=== PATIENT | female | born 1930 | race Caucasian/White ===

== ENCOUNTER 2017-11-13 13:47 | Observation (INO) | payer MEDICARE, OTHER ==
--- NOTE | 2017-11-13 14:48 | EDM.PDOC ---
ED HPI GENERAL MEDICAL PROBLEM - General Chief Complaint: Syncope Stated Complaint: MEDICAL VIA TRI Time Seen by Provider: 11/13/17 14:43 Source of Information: Reports: Patient History Limitations: Reports: No Limitations - History of Present Illness INITIAL COMMENTS - FREE TEXT/NARRATIVE: pt was up on the comode feeling like she needed to have a bm and she had an episode where she passed out. The nurse aid was in the room and lowered her to the floor with no fall. Onset: Today, Sudden Duration: Hour(s): Location: Reports: Head, Abdomen Associated Symptoms: Reports: Nausea/Vomiting, Syncope, Other ( diarrhea. The pt was up on the comode and had the urge to have a bm. She suddenly passed out and was lowered to the floor. She then vomited and she had loose stool. She has pased out in the past after she has vomited. ) Right Shoulder Pain Score (Numeric/FACES): 10 - Related Data Allergies Allergy/AdvReac Type Severity Reaction Status Date / Time benzonatate Allergy Cannot Uncoded 11/13/17 14:19 Remember Home Meds: Home Meds Latanoprost 1 drop EYEBOTH BEDTIME 02/17/14 [History] Estradiol [Estrace] 0.5 mg PO DAILY 10/06/14 [History] Escitalopram [Lexapro] 20 mg PO DAILY 11/13/17 [History] Furosemide [Lasix] 20 mg PO DAILY 11/13/17 [History] Timolol Maleate 1 drop TOP BID 11/13/17 [History] Losartan [Cozaar] 50 mg PO DAILY #30 tab 11/15/17 [Rx] Past Medical History HEENT History: Reports: Cataract, Glaucoma, Macular Degeneration Cardiovascular History: Reports: Arrhythmia, Hypertension, Other (See Below) Other Cardiovascular History: edema Genitourinary History: Reports: Urinary Incontinence [employer] History: Reports: Other (See Below) Other [employer] History: chronic vaginitis Musculoskeletal History: Reports: Osteoarthritis, Other (See Below) Other Musculoskeletal History: abnormalitiesof gait and mobility Neurological History: Reports: Other (See Below) Other Neuro History: 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 Psychiatric History: Reports: Depression Endocrine/Metabolic History: Reports: Obesity/BMI 30+ - Past Surgical History Female Surgical History: Reports: Hysterectomy ED ROS GENERAL - Review of Systems Review Of Systems: See Below Constitutional: Reports: Weakness, Fatigue HEENT: Reports: No Symptoms Respiratory: Reports: No Symptoms Cardiovascular: Reports: No Symptoms Endocrine: Reports: No Symptoms GI/Abdominal: Reports: Diarrhea, Nausea, Vomiting : Reports: No Symptoms Musculoskeletal: Reports: No Symptoms Skin: Reports: No Symptoms ED EXAM, GENERAL - Physical Exam Exam: See Below Free Text/Narrative:: pt arrived with shoulder pain on the rt because she was rolled on her rt shoulder. She had a syncopal episode. She is very prone to passing out. Exam Limited By: Other (pt is alert at the time of arrival. Her daughter is here and is able to give a clear history.) General Appearance: Alert, Mild Distress, Other (pupils equal and reactive. ) Ears: Normal TMs Nose: Normal Inspection Throat/Mouth: Normal Inspection Head: Atraumatic Neck: Normal Inspection Respiratory/Chest: No Respiratory Distress Cardiovascular: Regular Rate, Rhythm, Other (pt was having tachy at first. ) GI/Abdominal: Soft, Non-Tender (Female) Exam: Deferred Rectal (Female) Exam: Deferred Back Exam: Normal Inspection Extremities: Other (pt has tenderness of the rt shoulder. Xrays were obtained which does not show a dislocation of fracture. ) Neurological: Alert, Oriented, Normal Cognition, Other (pt is forgetful and is having trouble giving a acurate history. ) Psychiatric: Depressed Mood Course - Vital Signs Last Recorded V/S: Last Vital Signs Temp 35.9 C 11/15/17 11:23 Pulse 66 11/15/17 11:23 Resp 18 11/15/17 11:23 BP 142/69 H 11/15/17 11:23 Pulse Ox 98 11/15/17 11:23 Orthostatic Blood Pressure [ 150/78 Standing] Orthostatic Blood Pressure [ 147/71 Sitting] Orthostatic Blood Pressure [ 150/70 Supine] - Orders/Labs/Meds Labs: Laboratory Tests 11/13/17 11/13/17 11/13/17 Range/Units 14:49 14:49 14:49 WBC 9.6 (4.5-11.0) K/uL RBC 4.12 (3.30-5.50) M/uL Hgb 12.8 (12.0-15.0) g/dL Hct 38.6 (36.0-48.0) % MCV 94 (80-98) fL MCH 31 (27-31) pg MCHC 33 (32-36) % Plt Count 201 (150-400) K/uL Neut % (Auto) 67 H (36-66) % Lymph % (Auto) 21 L (24-44) % [place] % (Auto) 11 H (2-6) % Eos % (Auto) 1 L (2-4) % Baso % (Auto) 0 (0-1) % Sodium 134 L (140-148) mmol/L Potassium 3.9 (3.6-5.2) mmol/L Chloride 98 L (100-108) mmol/L Carbon Dioxide 31 (21-32) mmol/L Anion Gap 8.9 (5.0-14.0) mmol/L BUN 21 H (7-18) mg/dL Creatinine 0.9 (0.6-1.0) mg/dL Est Cr Clr Drug Dosing 38.03 mL/min Estimated GFR (MDRD) 59 L (>60) Glucose 107 H (74-106) mg/dL Calcium 8.6 (8.5-10.1) mg/dL Total Bilirubin 0.4 (0.2-1.0) mg/dL AST 16 (15-37) U/L ALT 16 (12-78) U/L Alkaline Phosphatase 56 (46-116) U/L Troponin I < 0.017 (0.000-0.056) ng/mL Total Protein 6.2 L (6.4-8.2) g/dL Albumin 3.2 L (3.4-5.0) g/dL Globulin 3.0 (2.3-3.5) g/dL Albumin/Globulin Ratio 1.1 L (1.2-2.2) Urine Color Urine Appearance Urine pH (4.5-8.0) Ur Specific [place] (1.008-1.030) Urine Protein (NEGATIVE) mg/dL Urine Glucose (UA) (NEGATIVE) mg/dL Urine Ketones (NEGATIVE) mg/dL Urine Occult Blood (NEGATIVE) Urine Nitrite (NEGATIVE) Urine Bilirubin (NEGATIVE) Urine Urobilinogen (NORMAL) mg/dL Ur Leukocyte Esterase (NEGATIVE) Urine RBC (0-5) Urine WBC (0-5) Ur Epithelial Cells Amorphous Sediment Urine Bacteria Urine Mucus 11/13/17 Range/Units 15:45 WBC (4.5-11.0) K/uL RBC (3.30-5.50) M/uL Hgb (12.0-15.0) g/dL Hct (36.0-48.0) % MCV (80-98) fL MCH (27-31) pg MCHC (32-36) % Plt Count (150-400) K/uL Neut % (Auto) (36-66) % Lymph % (Auto) (24-44) % [place] % (Auto) (2-6) % Eos % (Auto) (2-4) % Baso % (Auto) (0-1) % Sodium (140-148) mmol/L Potassium (3.6-5.2) mmol/L Chloride (100-108) mmol/L Carbon Dioxide (21-32) mmol/L Anion Gap (5.0-14.0) mmol/L BUN (7-18) mg/dL Creatinine (0.6-1.0) mg/dL Est Cr Clr Drug Dosing mL/min Estimated GFR (MDRD) (>60) Glucose (74-106) mg/dL Calcium (8.5-10.1) mg/dL Total Bilirubin (0.2-1.0) mg/dL AST (15-37) U/L ALT (12-78) U/L Alkaline Phosphatase (46-116) U/L Troponin I (0.000-0.056) ng/mL Total Protein (6.4-8.2) g/dL Albumin (3.4-5.0) g/dL Globulin (2.3-3.5) g/dL Albumin/Globulin Ratio (1.2-2.2) Urine Color Yellow Urine Appearance Clear Urine pH 5.0 (4.5-8.0) Ur Specific [place] 1.020 (1.008-1.030) Urine Protein Negative (NEGATIVE) mg/dL Urine Glucose (UA) Normal (NEGATIVE) mg/dL Urine Ketones Negative (NEGATIVE) mg/dL Urine Occult Blood Moderate (NEGATIVE) Urine Nitrite Negative (NEGATIVE) Urine Bilirubin Negative (NEGATIVE) Urine Urobilinogen Normal (NORMAL) mg/dL Ur Leukocyte Esterase Negative (NEGATIVE) Urine RBC 5-10 H (0-5) Urine WBC Not seen (0-5) Ur Epithelial Cells Few Amorphous Sediment Few Urine Bacteria Rare Urine Mucus Not seen Meds: Medications Discontinued Medications Generic Name Dose Route Start Last Admin Trade Name Freq PRN Reason Stop Dose Admin Acetaminophen 650 mg 11/13/17 21:00 11/13/17 21:27 Tylenol PO 650 mg Q4H PRN Administration Pain (Mild 1-3)/fever Enoxaparin Sodium 40 mg 11/13/17 21:00 11/14/17 20:13 Lovenox SUBCUT 40 mg Q24H ISMAEL Administration Escitalopram Oxalate 20 mg 11/14/17 09:00 11/15/17 08:11 Lexapro PO 20 mg DAILY ISMAEL Administration Hydrochlorothiazide 12.5 mg 11/14/17 12:00 Hydrochlorothiazide PO DAILY ISMAEL Sodium Chloride 1,000 mls @ 500 mls/hr 11/13/17 16:15 11/13/17 16:29 Normal Saline IV 500 mls/hr ASDIRECTED ISMAEL Administration Sodium Chloride 1,000 mls @ 75 mls/hr 11/13/17 21:00 11/14/17 09:01 Normal Saline IV 75 mls/hr ASDIRECTED ISMAEL Administration Latanoprost 0 ml 11/13/17 21:00 11/14/17 20:13 Xalatan 0.005% Ophth Soln EYEBOTH 1 drop BEDTIME ISMAEL Administration Magnesium Hydroxide 30 ml 11/13/17 21:00 Milk Of Magnesia PO Q12H PRN Constipation Melatonin 9 mg 11/13/17 21:00 11/14/17 20:13 Melatonin PO 9 mg BEDTIME ISMAEL Administration Ondansetron HCl 4 mg 11/13/17 21:00 Zofran IV Q4H PRN Nausea/Vomiting Losartan 100mg Tab ( 0 each 11/14/17 12:00 11/15/17 08:11 Ptom) PO 1 each DAILY ISMAEL Administration Polyethylene Glycol 17 gm 11/13/17 21:00 Miralax PO DAILY PRN Constipation Senna/Docusate Sodium 1 tab 11/13/17 21:00 Senna Plus PO BID PRN Constipation Sodium Chloride 10 ml 11/13/17 21:00 Saline Flush FLUSH ASDIRECTED PRN Keep Vein Open Timolol Maleate 0 ml 11/13/17 21:00 11/14/17 11:50 Timoptic 0.5% Ophth Soln EYEBOTH Not Given BID ISMAEL Timolol Maleate 0 ml 11/14/17 12:00 11/15/17 08:11 Timoptic 0.5% Ophth Soln EYEBOTH 1 drop BID [facility] Administration - Re-Assessments/Exams Free Text/Narrative Re-Assessment/Exam: 11/16/17 07:28 pt had a cat scan of the head. She was hydrated with a liter of fluid. Her rhythm stayed good. Her trop was normal>she continuied not to ambulate or transfer well. There was concern for her safety at home. Departure - Departure Time of Disposition: 18:21 Disposition: Admitted As Inpatient 66 Reason for Transfer *Q: Other Condition: Fair Clinical Impression: Vagal reaction, Syncope, Confusion, Dehydration
[2017-11-13] MEDS ORDERED: Sodium Chloride 0.9% 1,000 ML IV SCH (16:15)
--- NOTE | 2017-11-13 20:33 | PCM.HP ---
H&P History of Present Illness - General Date of Service: 11/13/17 Admit Problem/Dx: Admission Diagnosis/Problem Admission Diagnosis/Problem Weakness Source of Information: Patient, Family, Provider, RN Notes Reviewed History Limitations: Reports: Altered Mental Status (Dementia) - History of Present Illness Initial Comments - Free Text/Narative: Ms. Vazquez is an 87-year-old woman who is admitted to observation status because of significant weakness and need to facilitate half-way placement. Family gives a history that she has become progressively more weak over the past few months and has required more assistance with transfers and ambulationed. She has a known history of vasovagal near syncope as well as syncope, usually related to bowel movements. An aid was with her this morning when she was on the toilet to have a bowel movement and began to feel weak and lightheaded. She was noted to have lost consciousness and was lowered to the floor, shortly thereafter she became nauseated and vomited. Evaluation in the emergency department including CT scan is unremarkable. She is not felt to be safe for discharge back to her assisted living facility. Because of her dementia she is unable to provide reliable information concerning symptoms or review of systems. Right Shoulder Pain Score (Numeric/FACES): 10 - Related Data Allergies/Adverse Reactions: Allergies Allergy/AdvReac Type Severity Reaction Status Date / Time benzonatate Allergy Cannot Uncoded 11/13/17 14:19 Remember Home Medications: Home Meds Latanoprost 1 drop EYEBOTH BEDTIME 02/17/14 [History] Estradiol [Estrace] 0.5 mg PO DAILY 10/06/14 [History] Hydrochlorothiazide [Microzide] 12.5 mg PO DAILY 10/06/14 [History] Escitalopram [Lexapro] 20 mg PO DAILY 11/13/17 [History] Furosemide [Lasix] 20 mg PO DAILY 11/13/17 [History] Losartan Potassium [Cozaar] 100 mg PO DAILY 11/13/17 [History] Timolol Maleate 1 drop TOP BID 11/13/17 [History] Past Medical History HEENT History: Reports: Cataract, Glaucoma, Macular Degeneration Cardiovascular History: Reports: Arrhythmia, Hypertension, Other (See Below) Other Cardiovascular History: edema Genitourinary History: Reports: Urinary Incontinence [employer] History: Reports: Other (See Below) Other OB/BYN History: chronic vaginitis Musculoskeletal History: Reports: Osteoarthritis, Other (See Below) Other Musculoskeletal History: abnormalitiesof gait and mobility Neurological History: Reports: Other (See Below) Other Neuro History: 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 Psychiatric History: Reports: Depression Endocrine/Metabolic History: Reports: Obesity/BMI 30+ - Past Surgical History Female Surgical History: Reports: Hysterectomy Social & Family History - Tobacco Use Smoking Status *Q: Former Smoker Used Tobacco, but Quit: Yes Month/Year Tobacco Last Used: 50 years - Caffeine Use Caffeine Use: Reports: Coffee - Recreational Drug Use Recreational Drug Use: No H&P Review of Systems - Review of Systems: Review Of Systems: Unable To Obtain General: Reports: ROS unobtainable (Dementia) Exam - Exam Exam: See Below - Vital Signs Vital Signs: Last Vital Signs Temp 96.8 F 11/13/17 15:47 Pulse 89 11/13/17 19:41 Resp 17 11/13/17 19:41 BP 119/68 11/13/17 19:41 Pulse Ox 96 11/13/17 18:24 Orthostatic Blood Pressure [ 150/78 Standing] Orthostatic Blood Pressure [ 147/71 Sitting] Orthostatic Blood Pressure [ 150/70 Supine] Weight: 220 lb - Exam Quality Assessment: DVT Prophylaxis General: Alert, Cooperative HEENT: Conjunctiva Clear, Hearing Intact, Mucosa Moist & [place], Normal Nasal Septum, Posterior Pharynx Clear, Pupils Equal Neck: Supple, Trachea Midline, +2 Carotid Pulse wo Bruit Lungs: Clear to Auscultation, Normal Respiratory Effort Cardiovascular: Regular Rate, Regular Rhythm, Normal S1, Normal S2. No: Systolic Murmur, Diastolic Murmur GI/Abdominal Exam: Soft, Non-Tender, No Organomegaly, No Distention Extremities: No Pedal Edema, Other (Chronic right shoulder pain) Skin: Warm, Dry, Intact Neurological: Cranial Nerves Intact, Strength Equal Bilateral, Normal Speech, Normal Tone, Sensation Intact. No: Focal Deficit Neuro Extensive - Mental Status: Alert, Normal Mood/Affect, Disorientation to Place, Disorientation to Time, Memory Loss-Remote Events, Memory Loss-Recent Events. No: Normal Cognition, Memory Intact, Disorientation to Person - Patient Data Lab Results Last 24 hrs: Laboratory Results - last 24 hr 11/13/17 11/13/17 11/13/17 Range/Units 14:49 14:49 14:49 WBC 9.6 (4.5-11.0) K/uL RBC 4.12 (3.30-5.50) M/uL Hgb 12.8 (12.0-15.0) g/dL Hct 38.6 (36.0-48.0) % MCV 94 (80-98) fL MCH 31 (27-31) pg MCHC 33 (32-36) % Plt Count 201 (150-400) K/uL Neut % (Auto) 67 H (36-66) % Lymph % (Auto) 21 L (24-44) % Moore % (Auto) 11 H (2-6) % Eos % (Auto) 1 L (2-4) % Baso % (Auto) 0 (0-1) % Sodium 134 L (140-148) mmol/L Potassium 3.9 (3.6-5.2) mmol/L Chloride 98 L (100-108) mmol/L Carbon Dioxide 31 (21-32) mmol/L Anion Gap 8.9 (5.0-14.0) mmol/L BUN 21 H (7-18) mg/dL Creatinine 0.9 (0.6-1.0) mg/dL Est Cr Clr Drug Dosing 38.03 mL/min Estimated GFR (MDRD) 59 L (>60) Glucose 107 H (74-106) mg/dL Calcium 8.6 (8.5-10.1) mg/dL Total Bilirubin 0.4 (0.2-1.0) mg/dL AST 16 (15-37) U/L ALT 16 (12-78) U/L Alkaline Phosphatase 56 (46-116) U/L Troponin I < 0.017 (0.000-0.056) ng/mL Total Protein 6.2 L (6.4-8.2) g/dL Albumin 3.2 L (3.4-5.0) g/dL Globulin 3.0 (2.3-3.5) g/dL Albumin/Globulin Ratio 1.1 L (1.2-2.2) Urine Color Urine Appearance Urine pH (4.5-8.0) Ur Specific [place] (1.008-1.030) Urine Protein (NEGATIVE) mg/dL Urine Glucose (UA) (NEGATIVE) mg/dL Urine Ketones (NEGATIVE) mg/dL Urine Occult Blood (NEGATIVE) Urine Nitrite (NEGATIVE) Urine Bilirubin (NEGATIVE) Urine Urobilinogen (NORMAL) mg/dL Ur Leukocyte Esterase (NEGATIVE) Urine RBC (0-5) Urine WBC (0-5) Ur Epithelial Cells Amorphous Sediment Urine Bacteria Urine Mucus 11/13/17 Range/Units 15:45 WBC (4.5-11.0) K/uL RBC (3.30-5.50) M/uL Hgb (12.0-15.0) g/dL Hct (36.0-48.0) % MCV (80-98) fL MCH (27-31) pg MCHC (32-36) % Plt Count (150-400) K/uL Neut % (Auto) (36-66) % Lymph % (Auto) (24-44) % Moore % (Auto) (2-6) % Eos % (Auto) (2-4) % Baso % (Auto) (0-1) % Sodium (140-148) mmol/L Potassium (3.6-5.2) mmol/L Chloride (100-108) mmol/L Carbon Dioxide (21-32) mmol/L Anion Gap (5.0-14.0) mmol/L BUN (7-18) mg/dL Creatinine (0.6-1.0) mg/dL Est Cr Clr Drug Dosing mL/min Estimated GFR (MDRD) (>60) Glucose (74-106) mg/dL Calcium (8.5-10.1) mg/dL Total Bilirubin (0.2-1.0) mg/dL AST (15-37) U/L ALT (12-78) U/L Alkaline Phosphatase (46-116) U/L Troponin I (0.000-0.056) ng/mL Total Protein (6.4-8.2) g/dL Albumin (3.4-5.0) g/dL Globulin (2.3-3.5) g/dL Albumin/Globulin Ratio (1.2-2.2) Urine Color Yellow Urine Appearance Clear Urine pH 5.0 (4.5-8.0) Ur Specific [place] 1.020 (1.008-1.030) Urine Protein Negative (NEGATIVE) mg/dL Urine Glucose (UA) Normal (NEGATIVE) mg/dL Urine Ketones Negative (NEGATIVE) mg/dL Urine Occult Blood Moderate (NEGATIVE) Urine Nitrite Negative (NEGATIVE) Urine Bilirubin Negative (NEGATIVE) Urine Urobilinogen Normal (NORMAL) mg/dL Ur Leukocyte Esterase Negative (NEGATIVE) Urine RBC 5-10 H (0-5) Urine WBC Not seen (0-5) Ur Epithelial Cells Few Amorphous Sediment Few Urine Bacteria Rare Urine Mucus Not seen Result Diagrams: 11/13/17 14:49 11/13/17 14:49 *Q Meaningful Use (ADM) - VTE Risk Assess *Q Each Risk Factor Represents 1 Point: Obesity ( BMI > 25 kg/m2) Total Score 1 Point Risk Factors: 1 Each Risk Factor Represents 2 Points: None Total Score 2 Point Risk Factors: 0 Each Risk Factor Represents 3 Points: Age 75 Years or Greater Total Score 3 Point Risk Factors: 3 Each Risk Factor Represents 5 Points: None Total Score 5 Point Risk Factors: 0 Venous Thromboembolism Risk Factor Score *Q: 4 Problem List Initiated/Reviewed/Updated: Yes Orders Last 24hrs: Active Orders 24 hr Category Date Time Status Patient Status Manage Transfer [TRANSFER] Routine ADT 11/13/17 20:09 Active EKG Documentation Completion [RC] ASDIRECTED Care 11/13/17 14:37 Active Orthostatic Vital Signs [RC] ASDIRECTED Care 11/13/17 15:07 Active Head wo Cont [CT] Stat Exams 11/13/17 18:13 Taken Shoulder Comp Rt [CR] Stat Exams 11/13/17 16:44 Taken UA W/MICROSCOPIC [URIN] Urgent Lab 11/13/17 15:45 Ordered Sodium Chloride 0.9% [Normal Saline] 1,000 ml Med 11/13/17 16:15 Active IV ASDIRECTED Resuscitation Status Routine Resus Stat 11/13/17 20:11 Ordered EKG 12 Lead [EK] Routine Ther 11/13/17 14:36 Ordered Medication Orders Sodium Chloride (Normal Saline) 1,000 mls @ 500 mls/hr IV ASDIRECTED ISMAEL Last Admin: 11/13/17 16:29 Dose: 500 mls/hr Assessment/Plan Comment:: ASSESSMENT AND PLAN GENERALIZED WEAKNESS-progressive weakness over the past few months, causing difficulty with transfers and ambulation. Not felt to be safe for discharge back to assisted living facility. -penitentiary placement in a.m. VASOVAGAL SYNCOPE-previous history of syncope and near-syncope, often related to use of the toilet. Similar symptoms today with lightheadedness weakness and nausea. -Cardiac monitoring -Orthostatic vital signs DEMENTIA-family has noted a progressive history of confusion and memory loss -penitentiary placement as above -Melatonin 9 mg by mouth daily at bedtime while hospitalized MAINTENANCE ISSUES -DVT prophylaxis;Lovenox 30 mg subcutaneous daily -GI prophylaxis;Not indicated -Huynh catheter;Not indicated -Nutrition;2 g sodium diet -Nicotine dependence;Not required CODE STATUS-DNR/DNI ADMISSION STATUS-this patient will be admitted to observation status, expect no more than a one night hospital stay for evaluation and management of problems as outlined above. DISPOSITION-anticipate discharge to home after the hospital stay. PRIMARY CARE PROVIDER-Dr. Narvaez
[2017-11-13] MEDS ORDERED: Ondansetron 4 MG/2 ML SDV IV PRN (21:00)
[2017-11-13] MEDS ORDERED: Acetaminophen 325 MG Tab PO PRN (21:00)
[2017-11-13] MEDS ORDERED: Magnesium Hydroxide 400 MG/5 ML Susp 30 ML Cup PO PRN (21:00)
[2017-11-13] MEDS ORDERED: Sodium Chloride 0.9% 10 ML Syringe FLUSH PRN (21:00)
[2017-11-13] MEDS ORDERED: Polyethylene Glycol 3350 Powder 17 GM Packet PO PRN (21:00)
[2017-11-13] MEDS: Melatonin 3 MG Tab PO SCH (21:27)
[2017-11-13] MEDS: Latanoprost 0.005% Ophth Soln 2.5 ML Bottle EYEBOTH SCH (21:35)
[2017-11-13] MEDS: Enoxaparin 40 MG/0.4 ML Syringe SUBCUT SCH (21:35)
[2017-11-13] MEDS: Sodium Chloride 0.9% 1,000 ML IV SCH (21:36)
[2017-11-13] MEDS: Timolol Maleate 0.5% Ophth Soln 5 ML Bottle EYEBOTH SCH (21:37)
[2017-11-14] MEDS ORDERED: Hydrochlorothiazide 12.5 MG Cap PO SCH (09:00)
[2017-11-14] MEDS ORDERED: Losartan 50 MG Tab PO SCH (09:00)
[2017-11-14] MEDS: Sodium Chloride 0.9% 1,000 ML IV SCH (09:01)
--- NOTE | 2017-11-14 11:11 | CR ---
Shoulder Comp Rt CLINICAL HISTORY: Right shoulder pain FINDINGS: There is no acute fracture. The the humeral head is high in position abutting the underside of the acromion. There is some osteoarthritic change in the glenohumeral joint Impression: No fracture Humeral head position suggests joint laxity Osteoarthritic change
[2017-11-14] MEDS: Timolol Maleate 0.5% Ophth Soln 5 ML Bottle EYEBOTH SCH (11:50)
[2017-11-14] MEDS ORDERED: Hydrochlorothiazide 25 MG Tab (PTOM) PO SCH (12:00)
--- NOTE | 2017-11-14 12:04 | PCM.PN ---
- General Info Date of Service: 11/14/17 Subjective Update: Ms. Vazquez has remained stable since admission, she is experienced no significant orthostatic drop in blood pressure or cardiac dysrhythmias on cardiac monitoring. She is otherwise feeling well this morning although is definitely weak and has difficulty with ambulation and transfers. Currently awaiting [facility] placement. She is unable to provide significant information concerning recent symptoms or review of systems because of dementia. - Patient Data Vitals - Most Recent: Last Vital Signs Temp 96.8 F 11/14/17 07:00 Pulse 74 11/14/17 07:00 Resp 15 11/14/17 07:00 BP 139/64 11/14/17 07:00 Pulse Ox 94 L 11/14/17 07:00 Orthostatic Blood Pressure [ 150/78 Standing] Orthostatic Blood Pressure [ 150/81 Sitting] Orthostatic Blood Pressure [ 139/64 Supine] Weight - Most Recent: 201 lb I&O - Last 24 Hours: Intake & Output 11/13/17 11/14/17 11/14/17 22:59 06:59 14:59 Intake Total 240 Output Total 200 150 Balance -200 90 Lab Results Last 24 Hours: Laboratory Results - last 24 hr 11/13/17 11/13/17 11/13/17 Range/Units 14:49 14:49 14:49 WBC 9.6 (4.5-11.0) K/uL RBC 4.12 (3.30-5.50) M/uL Hgb 12.8 (12.0-15.0) g/dL Hct 38.6 (36.0-48.0) % MCV 94 (80-98) fL MCH 31 (27-31) pg MCHC 33 (32-36) % Plt Count 201 (150-400) K/uL Neut % (Auto) 67 H (36-66) % Lymph % (Auto) 21 L (24-44) % [place] % (Auto) 11 H (2-6) % Eos % (Auto) 1 L (2-4) % Baso % (Auto) 0 (0-1) % Sodium 134 L (140-148) mmol/L Potassium 3.9 (3.6-5.2) mmol/L Chloride 98 L (100-108) mmol/L Carbon Dioxide 31 (21-32) mmol/L Anion Gap 8.9 (5.0-14.0) mmol/L BUN 21 H (7-18) mg/dL Creatinine 0.9 (0.6-1.0) mg/dL Est Cr Clr Drug Dosing 38.03 mL/min Estimated GFR (MDRD) 59 L (>60) Glucose 107 H (74-106) mg/dL Calcium 8.6 (8.5-10.1) mg/dL Total Bilirubin 0.4 (0.2-1.0) mg/dL AST 16 (15-37) U/L ALT 16 (12-78) U/L Alkaline Phosphatase 56 (46-116) U/L Troponin I < 0.017 (0.000-0.056) ng/mL Total Protein 6.2 L (6.4-8.2) g/dL Albumin 3.2 L (3.4-5.0) g/dL Globulin 3.0 (2.3-3.5) g/dL Albumin/Globulin Ratio 1.1 L (1.2-2.2) Urine Color Urine Appearance Urine pH (4.5-8.0) Ur Specific [place] (1.008-1.030) Urine Protein (NEGATIVE) mg/dL Urine Glucose (UA) (NEGATIVE) mg/dL Urine Ketones (NEGATIVE) mg/dL Urine Occult Blood (NEGATIVE) Urine Nitrite (NEGATIVE) Urine Bilirubin (NEGATIVE) Urine Urobilinogen (NORMAL) mg/dL Ur Leukocyte Esterase (NEGATIVE) Urine RBC (0-5) Urine WBC (0-5) Ur Epithelial Cells Amorphous Sediment Urine Bacteria Urine Mucus 11/13/17 Range/Units 15:45 WBC (4.5-11.0) K/uL RBC (3.30-5.50) M/uL Hgb (12.0-15.0) g/dL Hct (36.0-48.0) % MCV (80-98) fL MCH (27-31) pg MCHC (32-36) % Plt Count (150-400) K/uL Neut % (Auto) (36-66) % Lymph % (Auto) (24-44) % [place] % (Auto) (2-6) % Eos % (Auto) (2-4) % Baso % (Auto) (0-1) % Sodium (140-148) mmol/L Potassium (3.6-5.2) mmol/L Chloride (100-108) mmol/L Carbon Dioxide (21-32) mmol/L Anion Gap (5.0-14.0) mmol/L BUN (7-18) mg/dL Creatinine (0.6-1.0) mg/dL Est Cr Clr Drug Dosing mL/min Estimated GFR (MDRD) (>60) Glucose (74-106) mg/dL Calcium (8.5-10.1) mg/dL Total Bilirubin (0.2-1.0) mg/dL AST (15-37) U/L ALT (12-78) U/L Alkaline Phosphatase (46-116) U/L Troponin I (0.000-0.056) ng/mL Total Protein (6.4-8.2) g/dL Albumin (3.4-5.0) g/dL Globulin (2.3-3.5) g/dL Albumin/Globulin Ratio (1.2-2.2) Urine Color Yellow Urine Appearance Clear Urine pH 5.0 (4.5-8.0) Ur Specific [place] 1.020 (1.008-1.030) Urine Protein Negative (NEGATIVE) mg/dL Urine Glucose (UA) Normal (NEGATIVE) mg/dL Urine Ketones Negative (NEGATIVE) mg/dL Urine Occult Blood Moderate (NEGATIVE) Urine Nitrite Negative (NEGATIVE) Urine Bilirubin Negative (NEGATIVE) Urine Urobilinogen Normal (NORMAL) mg/dL Ur Leukocyte Esterase Negative (NEGATIVE) Urine RBC 5-10 H (0-5) Urine WBC Not seen (0-5) Ur Epithelial Cells Few Amorphous Sediment Few Urine Bacteria Rare Urine Mucus Not seen Med Orders - Current: Current Medications Acetaminophen (Tylenol) 650 mg PO Q4H PRN PRN Reason: Pain (Mild 1-3)/fever Last Admin: 11/13/17 21:27 Dose: 650 mg Enoxaparin Sodium (Lovenox) 40 mg SUBCUT Q24H [facility] Last Admin: 11/13/17 21:35 Dose: 40 mg Escitalopram Oxalate (Lexapro) 20 mg PO DAILY [facility] Latanoprost (Xalatan 0.005% Ophth Soln) 0 ml EYEBOTH BEDTIME [facility] Last Admin: 11/13/17 21:35 Dose: 1 drop Magnesium Hydroxide (Milk Of Magnesia) 30 ml PO Q12H PRN PRN Reason: Constipation Melatonin (Melatonin) 9 mg PO BEDTIME [facility] Last Admin: 11/13/17 21:27 Dose: 9 mg Ondansetron HCl (Zofran) 4 mg IV Q4H PRN PRN Reason: Nausea/Vomiting Losartan 100mg Tab ( (Ptom)) 0 each PO DAILY [facility] Polyethylene Glycol (Miralax) 17 gm PO DAILY PRN PRN Reason: Constipation Senna/Docusate Sodium (Senna Plus) 1 tab PO BID PRN PRN Reason: Constipation Sodium Chloride (Saline Flush) 10 ml FLUSH ASDIRECTED PRN PRN Reason: Keep Vein Open Timolol Maleate (Timoptic 0.5% Ophth Soln) 0 ml EYEBOTH BID [facility] Discontinued Medications Hydrochlorothiazide (Hydrochlorothiazide) 12.5 mg PO DAILY [facility] Sodium Chloride (Normal Saline) 1,000 mls @ 500 mls/hr IV ASDIRECTED [facility] Last Admin: 11/13/17 16:29 Dose: 500 mls/hr Sodium Chloride (Normal Saline) 1,000 mls @ 75 mls/hr IV ASDIRECTED [facility] Last Admin: 11/14/17 09:01 Dose: 75 mls/hr Timolol Maleate (Timoptic 0.5% Ophth Soln) 0 ml EYEBOTH BID [facility] Last Admin: 11/14/17 11:50 Dose: Not Given - Exam General: Alert, Cooperative, No Acute Distress Lungs: Clear to Auscultation, Normal Respiratory Effort Cardiovascular: Regular Rate, Regular Rhythm, No Murmurs GI/Abdominal Exam: Soft, Non-Tender, No Organomegaly, No Distention Extremities: Non-Tender, No Pedal Edema Skin: Warm, Dry, Intact - Problem List Review Problem List Initiated/Reviewed/Updated: Yes - My Orders Last 24 Hours: My Active Orders 11/13/17 20:11 Resuscitation Status Routine 11/13/17 21:00 Patient Status [ADT] Routine Ambulate [RC] QID Cardiac Monitoring [RC] .As Directed Height and Weight [RC] DAILY Intake and Output [RC] QSHIFT Notify Provider Vital Signs [RC] ASDIRECTED Orthostatic Vital Signs [RC] Q6HR Oxygen Therapy [RC] PRN Peripheral IV Care [RC] . DIRECTED Up With Assistance [RC] ASDIRECTED Up to Chair [RC] QID VTE/DVT Education [RC] Per Unit Routine Vital Signs [RC] Q4H PT Evaluation and Treatment [CONS] Routine Acetaminophen [Tylenol] 650 mg PO Q4H PRN Docusate Sodium/Sennosides [Senna Plus] 1 tab PO BID PRN Enoxaparin [Lovenox] 40 mg SUBCUT Q24H Latanoprost [Xalatan 0.005% Ophth Soln] 0 ml EYEBOTH BEDTIME Magnesium Hydroxide [Milk of Magnesia] 30 ml PO Q12H PRN Melatonin 9 mg PO BEDTIME Ondansetron [Zofran] 4 mg IV Q4H PRN Polyethylene Glycol 3350 [MiraLAX] 17 gm PO DAILY PRN Sodium Chloride 0.9% [Saline Flush] 10 ml FLUSH ASDIRECTED PRN Peripheral IV Insertion Adult [OM.PC] Routine 11/14/17 09:00 Escitalopram [Lexapro] 20 mg PO DAILY 11/14/17 12:00 Patient's Own Medication [Ptom] 0 each PO DAILY Timolol Maleate [Timoptic 0.5% Ophth Soln] 0 ml EYEBOTH BID 11/14/17 12:01 Convert IV to Saline Lock [OM.PC] Routine - Plan Plan:: ASSESSMENT AND PLAN GENERALIZED WEAKNESS-progressive weakness over the past few months, causing difficulty with transfers and ambulation. Not felt to be safe for discharge back to assisted living facility. -senior care placement VASOVAGAL SYNCOPE-previous history of syncope and near-syncope, often related to use of the toilet. Similar symptoms today with lightheadedness weakness and nausea. No significant orthostasis or cardiac dysrhythmias noted during hospitalization -Cardiac monitoring -Orthostatic vital signs DEMENTIA-family has noted a progressive history of confusion and memory loss -senior care placement as above -Melatonin 9 mg by mouth daily at bedtime while hospitalized MAINTENANCE ISSUES -DVT prophylaxis;Lovenox 30 mg subcutaneous daily -GI prophylaxis;Not indicated -Huynh catheter;Not indicated -Nutrition;2 g sodium diet -Nicotine dependence;Not required CODE STATUS-DNR/DNI ADMISSION STATUS-this patient will be admitted to observation status, expect no more than a one night hospital stay for evaluation and management of problems as outlined above. DISPOSITION-anticipate discharge to home after the hospital stay. PRIMARY CARE PROVIDER-Dr. Narvaez
[2017-11-14] MEDS: LOSARTAN 100MG TAB (PTOM) PO SCH (12:17)
[2017-11-14] MEDS: ESCITALOPRAM 20 MG PO SCH (12:17)
[2017-11-14] MEDS: Timolol Maleate 0.5% Ophth Soln 5 ML (PTOM) EYEBOTH SCH ×2 (12:18→20:13)
[2017-11-14] MEDS: Latanoprost 0.005% Ophth Soln 2.5 ML Bottle EYEBOTH SCH (20:13)
[2017-11-14] MEDS: Melatonin 3 MG Tab PO SCH (20:13)
[2017-11-14] MEDS: Enoxaparin 40 MG/0.4 ML Syringe SUBCUT SCH (20:13)
[2017-11-15] MEDS: Timolol Maleate 0.5% Ophth Soln 5 ML (PTOM) EYEBOTH SCH (08:11)
[2017-11-15] MEDS: LOSARTAN 100MG TAB (PTOM) PO SCH (08:11)
[2017-11-15] MEDS: ESCITALOPRAM 20 MG PO SCH (08:11)
[2017-11-15 11:25] VITALS: BP 142/69
--- NOTE | 2017-11-15 12:20 | PCM.DCSUM1 ---
Discharge Summary - Hospital Course Brief History: Ms. Vazquez is an 87-year-old woman who was admitted to observation status through the emergency department following a vasovagal syncopal episode and a recent history of progressive dementia and weakness. - Discharge Data Discharge Date: 11/15/17 Discharge Disposition: DC/Tfer to SNF 03 Condition: Stable - Discharge Diagnosis/Problem(s) (1) Vasovagal syncope SNOMED Code(s): 402815862 ICD Code: R55 - SYNCOPE AND COLLAPSE Status: Acute Current Visit: Yes (2) Hypertension SNOMED Code(s): 42200963 ICD Code: I10 - ESSENTIAL (PRIMARY) HYPERTENSION Status: Acute Current Visit: No (3) Dehydration SNOMED Code(s): 51430843 ICD Code: E86.0 - DEHYDRATION Status: Acute Current Visit: No (4) Dementia SNOMED Code(s): 77016285 ICD Code: F03.90 - UNSPECIFIED DEMENTIA WITHOUT BEHAVIORAL DISTURBANCE Status: Acute Current Visit: Yes - Patient Summary/Data Consults: Consultations 11/13/17 21:00 PT Evaluation and Treatment [CONS] Routine Please Evaluate and Treat. PT Reason for Consult: Weakness This query below is only for informational purposes and is not editable. Admission Diagnosis/Problem: Weakness Hospital Course: Ms. Vazquez is an 87-year-old woman who was admitted to observation status because of significant weakness and need to facilitate assisted placement. Family gives a history that she has become progressively more weak over the past few months and has required more assistance with transfers and ambulationed. She has a known history of vasovagal near syncope as well as syncope, usually related to bowel movements. An aid was with her this morning when she was on the toilet to have a bowel movement and began to feel weak and lightheaded. She was noted to have lost consciousness and was lowered to the floor, shortly thereafter she became nauseated and vomited. Evaluation in the emergency department including CT scan is unremarkable. She is not felt to be safe for discharge back to her assisted living facility. Because of her dementia she is unable to provide reliable information concerning symptoms or review of systems. On admission she was felt to a mildly dehydrated and did receive IV fluids until the following morning. Orthostatic vital signs were obtained as well as cardiac monitoring and showed no significant abnormalities. Her hydrochlorothiazide was discontinued and losartan dose was decreased to 50 mg daily. She was seen and evaluated by physical therapy while in the hospital. She is not felt to be safe for discharged home because of her weakness and progressive dementia. She will be discharged to the assisted for daily physical therapy and occupational therapy. Activity will be as tolerated and she will resume her usual diet. - Patient Instructions Diet: Low Sodium Activity: As Tolerated Other/Special Instructions: Daily physical therapy and occupational therapy while at the assisted - Discharge Plan *PRESCRIPTION DRUG MONITORING PROGRAM REVIEWED*: Not Applicable *COPY OF PRESCRIPTION DRUG MONITORING REPORT IN PATIENT CARIN: Not Applicable Prescriptions/Med Rec: Losartan [Cozaar] 50 mg PO DAILY #30 tab Home Medications: Home Meds Latanoprost 1 drop EYEBOTH BEDTIME 02/17/14 [History] Estradiol [Estrace] 0.5 mg PO DAILY 10/06/14 [History] Escitalopram [Lexapro] 20 mg PO DAILY 11/13/17 [History] Furosemide [Lasix] 20 mg PO DAILY 11/13/17 [History] Timolol Maleate 1 drop TOP BID 11/13/17 [History] Losartan [Cozaar] 50 mg PO DAILY #30 tab 11/15/17 [Rx] Referrals: Earnest Narvaez MD [Primary Care Provider] - - Discharge Summary/Plan Comment DC Time >30 min.: No - Patient Data Vitals - Most Recent: Last Vital Signs Temp 96.6 F 11/15/17 11:23 Pulse 66 11/15/17 11:23 Resp 18 11/15/17 11:23 BP 142/69 H 11/15/17 11:23 Pulse Ox 98 11/15/17 11:23 Orthostatic Blood Pressure [ 124/63 Standing] Orthostatic Blood Pressure [ 121/73 Sitting] Orthostatic Blood Pressure [ 126/74 Supine] Weight - Most Recent: 208 lb 8.917 oz I&O - Last 24 hours: Intake & Output 11/14/17 11/15/17 11/15/17 22:59 06:59 14:59 Intake Total 240 Output Total 100 Balance 140 Med Orders - Current: Current Medications Acetaminophen (Tylenol) 650 mg PO Q4H PRN PRN Reason: Pain (Mild 1-3)/fever Last Admin: 11/13/17 21:27 Dose: 650 mg Enoxaparin Sodium (Lovenox) 40 mg SUBCUT Q24H [facility] Last Admin: 11/14/17 20:13 Dose: 40 mg Escitalopram Oxalate (Lexapro) 20 mg PO DAILY [facility] Last Admin: 11/15/17 08:11 Dose: 20 mg Latanoprost (Xalatan 0.005% Ophth Soln) 0 ml EYEBOTH BEDTIME [facility] Last Admin: 11/14/17 20:13 Dose: 1 drop Magnesium Hydroxide (Milk Of Magnesia) 30 ml PO Q12H PRN PRN Reason: Constipation Melatonin (Melatonin) 9 mg PO BEDTIME [facility] Last Admin: 11/14/17 20:13 Dose: 9 mg Ondansetron HCl (Zofran) 4 mg IV Q4H PRN PRN Reason: Nausea/Vomiting Losartan 100mg Tab ( (Ptom)) 0 each PO DAILY [facility] Last Admin: 11/15/17 08:11 Dose: 1 each Polyethylene Glycol (Miralax) 17 gm PO DAILY PRN PRN Reason: Constipation Senna/Docusate Sodium (Senna Plus) 1 tab PO BID PRN PRN Reason: Constipation Sodium Chloride (Saline Flush) 10 ml FLUSH ASDIRECTED PRN PRN Reason: Keep Vein Open Timolol Maleate (Timoptic 0.5% Ophth Soln) 0 ml EYEBOTH BID [facility] Last Admin: 11/15/17 08:11 Dose: 1 drop Discontinued Medications Hydrochlorothiazide (Hydrochlorothiazide) 12.5 mg PO DAILY [facility] Sodium Chloride (Normal Saline) 1,000 mls @ 500 mls/hr IV ASDIRECTED [facility] Last Admin: 11/13/17 16:29 Dose: 500 mls/hr Sodium Chloride (Normal Saline) 1,000 mls @ 75 mls/hr IV ASDIRECTED [facility] Last Admin: 11/14/17 09:01 Dose: 75 mls/hr Timolol Maleate (Timoptic 0.5% Ophth Soln) 0 ml EYEBOTH BID [facility] Last Admin: 11/14/17 11:50 Dose: Not Given - Exam General: Reports: Alert, Cooperative, No Acute Distress Lungs: Reports: Clear to Auscultation, Normal Respiratory Effort Cardiovascular: Reports: Regular Rate, Regular Rhythm, No Murmurs GI/Abdominal Exam: Soft, Non-Tender, No Organomegaly, No Distention
== END 2017-11-15 13:40 ==
LOC: JP.ED 13:47 → JP.MS 20:09
PROVIDERS: ADMIT Hospitalist; ATTEND Hospitalist
DX: R55 Syncope and collapse (principal); R53.1 Weakness; I10 Essential (primary) hypertension; E86.0 Dehydration; F03.90 Unspecified dementia, unspecified severity, without behavioral disturbance, psychotic disturbance, mood disturbance, and anxiety; E66.9 Obesity, unspecified; Z79.899 Other long term (current) drug therapy; Z88.8 Allergy status to other drugs, medicaments and biological substances; Z87.891 Personal history of nicotine dependence
CPT/HCPCS: 36415; 70450; 73030; 80053; 81001; 84484; 85025; 93005; 96360; 96361; 96372; 97162; 97530; 99285; A9270; J1650; J7030